=== PATIENT | male | born 1940 | race Caucasian/White ===

== ENCOUNTER → 2016-10-22 | Outpatient (CLI) | payer SELFPAY ==
--- NOTE | 2016-10-22 15:13 | CT ---
CORONARY CALCIUM SCORE CLINICAL INDICATION: Screening. COMPARISON: None PROCEDURE: Gated images of the coronary arteries. Coronary artery calcium scoring was performed. FINDINGS: Coronary calcium scoring - 1769 LM: 380 LAD: 643 LCX: 134 RCA: 612 Ascending aorta measures 4.1 cm. IMPRESSION: 1. Calcium score of 1769. This places the patient at approximately over the 90th percentile for male s of equivalent age. Extensive atherosclerotic plaque. High likelihood of at least one significant coronary artery narrowing. 2. Ascending aortic aneurysm measuring 4.1 cm. Reported By:
== END ==
LOC: RAD 14:00
PROVIDERS: ATTEND Internal Medicine
DX: Z13.6 Encounter for screening for cardiovascular disorders (principal)